=== PATIENT | female | born 1975 | race Asian ===

== ENCOUNTER 2018-06-09 00:55 | Emergency (ER) | payer OTHER ==
[2018-06-09 02:57] LABS: ADD MAN DIFF? NO
[2018-06-09 03:00] LABS: WHITE BLOOD COUNT 9.5 10^3/ul (4.8-10.8)
[2018-06-09 03:00] LABS: BASOPHILS % 0.3 % (0.0-2.0); EOSINOPHILS % 0.2 % (0.0-7.0); HEMOGLOBIN 13.1 g/dl (12.0-16.0); LYMPHOCYTES # 1.9 10^3/ul (0.8-2.9); LYMPHOCYTES % 19.7 % (15.0-51.0); MEAN CORPUSCULAR HEMOGLOBIN 27.8 pg (29.0-33.0); MEAN CORPUSCULAR HGB CONC 31.2 g/dl (32.0-37.0); MEAN PLATELET VOLUME 9.4 fl (7.4-10.4); MONOCYTE # 0.5 10^3/ul (0.3-0.9); MONOCYTES % 5.1 % (0.0-11.0); NEUTROPHILS % 74.3 % (39.0-77.0); PLATELET COUNT 403 10^3/UL (140-415); RED BLOOD COUNT 4.72 10^6/ul (4.20-5.40); RED CELL DISTRIBUTION WIDTH 12.5 % (11.5-14.5)
[2018-06-09] MEDS: morphine 4 MG/ML VIAL IV (03:06)
[2018-06-09] MEDS: ONDANSETRON 4 MG INJ IV (03:06)
[2018-06-09] MEDS: SOD CHLORIDE 0.9% 1,000 ML IV (03:07)
[2018-06-09 03:23] LABS: ADD UMIC NO; UR ASCORBIC ACID NEGATIVE (NEGATIVE); UR BILIRUBIN (Dip) NEGATIVE (NEGATIVE); UR BLOOD (Dip) NEGATIVE (NEGATIVE); UR CLARITY SLIGHTLY CLOUDY (CLEAR); UR COLOR YELLOW (YELLOW); UR GLUCOSE (Dip) NEGATIVE (NEGATIVE); UR KETONES (Dip) NEGATIVE (NEGATIVE); UR LEUKOCYTE ESTERASE (Dip) NEGATIVE Leu/ul (NEGATIVE); UR MUCUS FEW /HPF (NONE SEEN); UR NITRITE (Dip) NEGATIVE (NEGATIVE); UR RBC 4 /HPF (0-5); UR SPECIFIC GRAVITY (Dip) 1.028 (1.003-1.030); UR TOTAL PROTEIN (Dip) NEGATIVE (NEGATIVE); UR UROBILINOGEN (Dip) 1+ mg/dL (NEGATIVE); UR WBC 2 /HPF (0-5)
[2018-06-09 03:31] LABS: ALANINE AMINOTRANSFERASE 22 IU/L (13-69); ALBUMIN 4.8 g/dl (3.3-4.9); ALKALINE PHOSPHATASE 86 IU/L (42-121); ANION GAP 13 (8-16); ASPARTATE AMINO TRANSFERASE 27 IU/L (15-46); BILIRUBIN,INDIRECT 0.3 mg/dl (0-1.1); BILIRUBIN,TOTAL 0.3 mg/dl (0.2-1.3); BLOOD UREA NITROGEN 12 mg/dl (7-20); CARBON DIOXIDE 29 mmol/L (21-31); CHLORIDE 104 mmol/L (97-110); CREATININE 0.68 mg/dl (0.44-1.00); GLUCOSE 130 mg/dl (70-220); LIPASE 70 U/L (23-300); POTASSIUM 4.1 mmol/L (3.5-5.1); SODIUM 142 mmol/L (135-144)
== END 2018-06-09 04:38 | disposition home or self-care (01) ==
LOC: E/R 00:55
DX: R10.13 Epigastric pain (principal); R11.2 Nausea with vomiting, unspecified
CPT/HCPCS: 36415; 76705; 80053; 81001; 81003; 81025; 83690; 85025; 96374; 96375; 99285-25

== ENCOUNTER 2018-12-15 22:25 | Inpatient (IN) | payer OTHER, MEDICAID ==
[2018-12-15 23:26] LABS: ADD MAN DIFF? NO
[2018-12-15 23:30] LABS: BASOPHILS % 0.2 % (0.0-2.0); HEMATOCRIT 29.2 % (37.0-47.0); HEMOGLOBIN 8.7 g/dl (12.0-16.0); LYMPHOCYTES # 0.9 10^3/ul (0.8-2.9); LYMPHOCYTES % 6.8 % (15.0-51.0); MEAN CORPUSCULAR HEMOGLOBIN 27.6 pg (29.0-33.0); MEAN CORPUSCULAR HGB CONC 29.8 g/dl (32.0-37.0); MEAN CORPUSCULAR VOLUME 92.7 fl (82.0-101.0); MEAN PLATELET VOLUME 9.5 fl (7.4-10.4); MONOCYTE # 0.8 10^3/ul (0.3-0.9); MONOCYTES % 6.1 % (0.0-11.0); NEUTROPHIL # 10.7 10^3/ul (1.6-7.5); NEUTROPHILS % 85.9 % (39.0-77.0); PLATELET COUNT 442 10^3/UL (140-415); RED BLOOD COUNT 3.15 10^6/ul (4.20-5.40); RED CELL DISTRIBUTION WIDTH 15.7 % (11.5-14.5)
[2018-12-15 23:30] LABS: WHITE BLOOD COUNT 12.5 10^3/ul (4.8-10.8)
[2018-12-15] MEDS: ONDANSETRON 4 MG INJ IV (23:31)
[2018-12-15] MEDS: SOD CHLORIDE 0.9% 500 ML IV (23:31)
[2018-12-15] MEDS: morphine 4 MG/ML VIAL IV (23:33)
[2018-12-15 23:48] LABS: ALANINE AMINOTRANSFERASE 19 IU/L (13-69); ALBUMIN 3.3 g/dl (3.3-4.9); ALBUMIN/GLOBULIN RATIO 0.94; ALKALINE PHOSPHATASE 67 IU/L (42-121); ASPARTATE AMINO TRANSFERASE 49 IU/L (15-46); BILIRUBIN,INDIRECT 0.4 mg/dl (0-1.1); BILIRUBIN,TOTAL 0.4 mg/dl (0.2-1.3); BLOOD UREA NITROGEN 15 mg/dl (7-20); CALCIUM 9.1 mg/dl (8.4-10.2); CHLORIDE 77 mmol/L (97-110); CREATININE 0.75 mg/dl (0.44-1.00); Estimated GFR > 60 mL/min (>60); GLUCOSE 117 mg/dl (70-220); LIPASE 231 U/L (23-300); SODIUM 135 mmol/L (135-144); TOTAL PROTEIN 6.8 g/dl (6.1-8.1)
[2018-12-15 23:56] LABS: ANION GAP 18 (5-13)
[2018-12-15 23:57] LABS: POTASSIUM 2.6 mmol/L (3.5-5.1)
[2018-12-15 23:58] LABS: CARBON DIOXIDE 40 mmol/L (21-31); TROPONIN-I 0.017 ng/ml (0.000-0.120)
[2018-12-16] MEDS: POTASSIUM CHLORIDE 100 ML IVPB ×4 (00:34→06:19)
[2018-12-16] MEDS ORDERED: ALBUTEROL/IPRATROPIUM (NEB) 3 ML AMP HHN (03:30)
[2018-12-16] MEDS ORDERED: PENDING SANTYL ORDER FOR WOUND CARE XX (03:30)
[2018-12-16] MEDS ORDERED: ONDANSETRON 4 MG INJ IV (03:30)
[2018-12-16] MEDS ORDERED: NACL 0.9% 3 ML SYG IV (03:30)
[2018-12-16] MEDS: DEXTROSE 5%-0.45% NACL 1,000 ML IV ×3 (03:53→21:08)
[2018-12-16 07:02] LABS: ADD MAN DIFF? NO
[2018-12-16 07:10] LABS: WHITE BLOOD COUNT 11.5 10^3/ul (4.8-10.8)
[2018-12-16 07:10] LABS: BASOPHILS % 0.2 % (0.0-2.0); HEMATOCRIT 31.1 % (37.0-47.0); HEMOGLOBIN 9.1 g/dl (12.0-16.0); LYMPHOCYTES # 1.4 10^3/ul (0.8-2.9); LYMPHOCYTES % 11.8 % (15.0-51.0); MEAN CORPUSCULAR HEMOGLOBIN 27.3 pg (29.0-33.0); MEAN CORPUSCULAR HGB CONC 29.3 g/dl (32.0-37.0); MEAN CORPUSCULAR VOLUME 93.4 fl (82.0-101.0); MEAN PLATELET VOLUME 10.3 fl (7.4-10.4); MONOCYTES % 8.8 % (0.0-11.0); NEUTROPHILS % 78.4 % (39.0-77.0); PLATELET COUNT 399 10^3/UL (140-415); RED BLOOD COUNT 3.33 10^6/ul (4.20-5.40); RED CELL DISTRIBUTION WIDTH 15.9 % (11.5-14.5)
[2018-12-16 07:24] LABS: IRON 38 ug/dl (35-150)
[2018-12-16 07:27] LABS: ALANINE AMINOTRANSFERASE 13 IU/L (13-69); ALBUMIN 3.2 g/dl (3.3-4.9); ALBUMIN/GLOBULIN RATIO 0.91; ALKALINE PHOSPHATASE 69 IU/L (42-121); ANION GAP 14 (5-13); ASPARTATE AMINO TRANSFERASE 55 IU/L (15-46); BILIRUBIN,INDIRECT 0.3 mg/dl (0-1.1); BILIRUBIN,TOTAL 0.3 mg/dl (0.2-1.3); BLOOD UREA NITROGEN 16 mg/dl (7-20); CALCIUM 8.8 mg/dl (8.4-10.2); CARBON DIOXIDE 39 mmol/L (21-31); CHLORIDE 83 mmol/L (97-110); CHOL/HDL RATIO 6.9 RATIO; CHOLESTEROL 159 mg/dl (100-200); CREATININE 0.66 mg/dl (0.44-1.00); Estimated GFR > 60 mL/min (>60); GLUCOSE 128 mg/dl (70-220); HDL CHOLESTEROL 23 mg/dl (34-88); LDL CHOLESTEROL,CALCULATED 95 mg/dl; MAGNESIUM 2.4 mg/dl (1.7-2.5); POTASSIUM 4.1 mmol/L (3.5-5.1); SODIUM 136 mmol/L (135-144); TOTAL PROTEIN 6.7 g/dl (6.1-8.1); TRIGLYCERIDES 207 mg/dl (0-149)
[2018-12-16 07:33] LABS: % IRON SATURATION 22 % SAT (22-52); TOTAL IRON BINDING CAPACITY 176 ug/dl (241-421)
[2018-12-16 07:54] LABS: HEMOGLOBIN A1C 5.6 % (0-5.9)
[2018-12-16] MEDS ORDERED: METOCLOPRAMIDE 10 MG INJ IV (08:00)
[2018-12-16 08:10] LABS: PHOSPHORUS 3.7 mg/dl (2.5-4.9)
[2018-12-16] MEDS ORDERED: ONDANSETRON 4 MG INJ (08:16)
[2018-12-16] MEDS: FAMOTIDINE 20 MG INJ IV ×2 (08:23→19:48)
[2018-12-16] MEDS: ONDANSETRON 4 MG INJ IV ×3 (09:30→20:26)
[2018-12-16] MEDS: SOD CHLORIDE 0.9% 100 ML (15:00)
[2018-12-16] MEDS: IOHEXOL 300MG/ML 150 ML BTL (15:00)
[2018-12-16] MEDS: IOHEXOL 14.3 MG(I)/ML (ADULT) BTL PO (15:34)
[2018-12-16] MEDS: morphine 2 MG INJ IV (20:26)
[2018-12-17] MEDS: morphine 2 MG INJ IV ×5 (02:49→22:23)
[2018-12-17] MEDS: ONDANSETRON 4 MG INJ IV ×4 (02:49→21:25)
[2018-12-17 06:39] LABS: ADD MAN DIFF? NO
[2018-12-17 06:44] LABS: BASOPHIL # 0.1 10^3/ul (0.0-0.1); BASOPHILS % 0.4 % (0.0-2.0); EOSINOPHILS # 0.1 10^3/ul (0.0-0.5); EOSINOPHILS % 0.7 % (0.0-7.0); HEMATOCRIT 33.2 % (37.0-47.0); HEMOGLOBIN 9.7 g/dl (12.0-16.0); LYMPHOCYTES # 1.9 10^3/ul (0.8-2.9); LYMPHOCYTES % 14.2 % (15.0-51.0); MEAN CORPUSCULAR HEMOGLOBIN 27.1 pg (29.0-33.0); MEAN CORPUSCULAR HGB CONC 29.2 g/dl (32.0-37.0); MEAN CORPUSCULAR VOLUME 92.7 fl (82.0-101.0); MEAN PLATELET VOLUME 10.2 fl (7.4-10.4); MONOCYTE # 0.7 10^3/ul (0.3-0.9); NEUTROPHIL # 10.7 10^3/ul (1.6-7.5); NEUTROPHILS % 78.8 % (39.0-77.0); PLATELET COUNT 412 10^3/UL (140-415); RED BLOOD COUNT 3.58 10^6/ul (4.20-5.40); RED CELL DISTRIBUTION WIDTH 16.1 % (11.5-14.5)
[2018-12-17 06:44] LABS: WHITE BLOOD COUNT 13.5 10^3/ul (4.8-10.8)
[2018-12-17 07:13] LABS: BLOOD UREA NITROGEN 12 mg/dl (7-20); CALCIUM 8.8 mg/dl (8.4-10.2); CHLORIDE 86 mmol/L (97-110); CREATININE 0.82 mg/dl (0.44-1.00); Estimated GFR > 60 mL/min (>60); GLUCOSE 124 mg/dl (70-220); MAGNESIUM 2.3 mg/dl (1.7-2.5); PHOSPHORUS 2.7 mg/dl (2.5-4.9); POTASSIUM 3.5 mmol/L (3.5-5.1); SODIUM 136 mmol/L (135-144)
[2018-12-17 07:23] LABS: ANION GAP 9 (5-13); CARBON DIOXIDE 41 mmol/L (21-31)
[2018-12-17] MEDS: FAMOTIDINE 20 MG INJ IV ×2 (08:29→21:25)
[2018-12-17] MEDS: DEXTROSE 5%-0.45% NACL 1,000 ML IV ×2 (08:30→11:08)
[2018-12-17 10:41] LABS: AADO2 Arterial 30.1 mmHg (7.0-24.0); Allen Test ACCEPTAB; Arterial Base Excess 19.5 mmol/L (-3.0-3); Arterial COHb 0.3 % (0.0-3.0); Arterial Fraction of Oxyhgb 89.5 % (93.0-99.0); Arterial HCO3 44.4 mmol/L (22.0-26.0); Arterial MetHb 0.3 % (0.0-1.5); Arterial pCO2 53.9 mmhg (35-45); MODE ROOM AIR; Site Left Radial
[2018-12-17] MEDS: ASCORBIC ACID 500 MG TAB PO (10:49)
[2018-12-17] MEDS: MULTIVITAMINS THERAPEUTIC TAB PO (10:50)
[2018-12-17] MEDS: ENOXAPARIN 60 MG/0.6 ML SYG SC ×2 (10:58→21:27)
[2018-12-17 11:00] LABS: PREALBUMIN 5.2 mg/dl (17.6-36.0)
[2018-12-17] MEDS: COLLAGENASE 5 GM (UD JAR) TOP (11:10)
[2018-12-18] MEDS: SUMATRIPTAN 6 MG/0.5 ML INJ SC (00:17)
[2018-12-18] MEDS: HYDROmorphONE 1 MG/ML SYG IV ×6 (00:44→23:43)
[2018-12-18] MEDS: DEXTROSE 5%-0.45% NACL 1,000 ML IV ×2 (00:50→05:09)
[2018-12-18] MEDS: morphine 2 MG INJ IV (02:59)
[2018-12-18] MEDS: ONDANSETRON 4 MG INJ IV ×4 (03:51→22:02)
[2018-12-18 07:51] LABS: ADD MAN DIFF? NO
[2018-12-18 08:03] LABS: WHITE BLOOD COUNT 12.4 10^3/ul (4.8-10.8)
[2018-12-18 08:03] LABS: BASOPHIL # 0.1 10^3/ul (0.0-0.1); BASOPHILS % 0.4 % (0.0-2.0); EOSINOPHILS # 0.3 10^3/ul (0.0-0.5); EOSINOPHILS % 2.5 % (0.0-7.0); HEMATOCRIT 30.7 % (37.0-47.0); HEMOGLOBIN 9.1 g/dl (12.0-16.0); LYMPHOCYTES # 1.1 10^3/ul (0.8-2.9); LYMPHOCYTES % 8.5 % (15.0-51.0); MEAN CORPUSCULAR HEMOGLOBIN 27.5 pg (29.0-33.0); MEAN CORPUSCULAR HGB CONC 29.6 g/dl (32.0-37.0); MEAN CORPUSCULAR VOLUME 92.7 fl (82.0-101.0); MEAN PLATELET VOLUME 9.7 fl (7.4-10.4); MONOCYTE # 0.8 10^3/ul (0.3-0.9); MONOCYTES % 6.6 % (0.0-11.0); NEUTROPHIL # 10.1 10^3/ul (1.6-7.5); NEUTROPHILS % 81.2 % (39.0-77.0); PLATELET COUNT 421 10^3/UL (140-415); RED BLOOD COUNT 3.31 10^6/ul (4.20-5.40); RED CELL DISTRIBUTION WIDTH 15.9 % (11.5-14.5)
[2018-12-18 08:08] LABS: INR 1.11; PROTIME 14.4 Sec (11.9-14.9); PT RATIO 1.1
[2018-12-18 08:11] LABS: ALBUMIN 2.6 g/dl (3.3-4.9)
[2018-12-18 08:16] LABS: BLOOD UREA NITROGEN 11 mg/dl (7-20); CALCIUM 8.4 mg/dl (8.4-10.2); CHLORIDE 86 mmol/L (97-110); Estimated GFR > 60 mL/min (>60); GLUCOSE 128 mg/dl (70-220); POTASSIUM 3.3 mmol/L (3.5-5.1); SODIUM 135 mmol/L (135-144)
[2018-12-18 08:33] LABS: ANION GAP 7 (5-13); CARBON DIOXIDE 42 mmol/L (21-31)
[2018-12-18] MEDS: ASCORBIC ACID 500 MG TAB PO (08:36)
[2018-12-18] MEDS: COLLAGENASE 5 GM (UD JAR) TOP (08:36)
[2018-12-18] MEDS: FAMOTIDINE 20 MG INJ IV ×2 (08:36→22:02)
[2018-12-18] MEDS: MULTIVITAMINS THERAPEUTIC TAB PO (08:36)
[2018-12-18] MEDS: ENOXAPARIN 60 MG/0.6 ML SYG SC ×2 (08:38→22:09)
[2018-12-18 08:44] LABS: CARCINOEMBRYONIC ANTIGEN 7.9 ng/ml (0.0-5.0)
[2018-12-18] MEDS: HYDROCORTISONE 1% 28 GM CR TOP ×2 (11:27→21:00)
[2018-12-18] MEDS: D5W-0.45 NACL + KCL 20 MEQ 1,000 ML IV ×2 (11:27→23:51)
[2018-12-18 12:37] LABS: ADD UMIC YES; UR ASCORBIC ACID NEGATIVE (NEGATIVE); UR BACTERIA FEW /HPF (NONE SEEN); UR BILIRUBIN (Dip) NEGATIVE (NEGATIVE); UR BLOOD (Dip) NEGATIVE (NEGATIVE); UR CLARITY SLIGHTLY CLOUDY (CLEAR); UR COLOR AMBER (YELLOW); UR GLUCOSE (Dip) NEGATIVE (NEGATIVE); UR KETONES (Dip) NEGATIVE (NEGATIVE); UR LEUKOCYTE ESTERASE (Dip) TRACE Leu/ul (NEGATIVE); UR NITRITE (Dip) NEGATIVE (NEGATIVE); UR RBC 3 /HPF (0-5); UR SPECIFIC GRAVITY (Dip) 1.044 (1.003-1.030); UR TOTAL PROTEIN (Dip) 1+ mg/dl (NEGATIVE); UR UROBILINOGEN (Dip) 2+ mg/dL (NEGATIVE); UR WBC 10 /HPF (0-5)
[2018-12-19] MEDS: morphine 4 MG/ML VIAL IV (02:38)
[2018-12-19] MEDS: ONDANSETRON 4 MG INJ IV ×4 (03:31→20:56)
[2018-12-19] MEDS: HYDROmorphONE 1 MG/ML SYG IV ×5 (05:57→22:19)
[2018-12-19] MEDS: FAMOTIDINE 20 MG INJ IV ×2 (08:26→20:57)
[2018-12-19] MEDS: morphine 2 MG INJ IV (08:29)
[2018-12-19] MEDS: ENOXAPARIN 60 MG/0.6 ML SYG SC ×2 (08:29→21:17)
[2018-12-19] MEDS: HYDROCORTISONE 1% 28 GM CR TOP ×2 (08:48→20:58)
[2018-12-19] MEDS: MULTIVITAMINS THERAPEUTIC TAB PO (09:00)
[2018-12-19] MEDS: ASCORBIC ACID 500 MG TAB PO (09:00)
[2018-12-19] MEDS: D5W-0.45 NACL + KCL 20 MEQ 1,000 ML IV (12:16)
[2018-12-19] MEDS: COLLAGENASE 5 GM (UD JAR) TOP (18:32)
[2018-12-20] MEDS: D5W-0.45 NACL + KCL 20 MEQ 1,000 ML IV ×3 (01:49→15:36)
[2018-12-20] MEDS: HYDROmorphONE 1 MG/ML SYG IV ×6 (02:03→21:36)
[2018-12-20] MEDS: ONDANSETRON 4 MG INJ IV ×4 (04:12→20:52)
[2018-12-20 06:41] LABS: ADD MAN DIFF? NO
[2018-12-20 06:53] LABS: BASOPHIL # 0.1 10^3/ul (0.0-0.1); BASOPHILS % 0.5 % (0.0-2.0); EOSINOPHILS # 0.3 10^3/ul (0.0-0.5); EOSINOPHILS % 2.1 % (0.0-7.0); HEMATOCRIT 31.8 % (37.0-47.0); HEMOGLOBIN 9.6 g/dl (12.0-16.0); LYMPHOCYTES # 1.7 10^3/ul (0.8-2.9); MEAN CORPUSCULAR HEMOGLOBIN 27.6 pg (29.0-33.0); MEAN CORPUSCULAR HGB CONC 30.2 g/dl (32.0-37.0); MEAN CORPUSCULAR VOLUME 91.4 fl (82.0-101.0); MEAN PLATELET VOLUME 9.9 fl (7.4-10.4); MONOCYTE # 1.1 10^3/ul (0.3-0.9); MONOCYTES % 8.7 % (0.0-11.0); NEUTROPHIL # 9.6 10^3/ul (1.6-7.5); PLATELET COUNT 466 10^3/UL (140-415); RED BLOOD COUNT 3.48 10^6/ul (4.20-5.40); RED CELL DISTRIBUTION WIDTH 15.7 % (11.5-14.5)
[2018-12-20 06:53] LABS: WHITE BLOOD COUNT 12.8 10^3/ul (4.8-10.8)
[2018-12-20 07:21] LABS: ANION GAP 8 (5-13); BLOOD UREA NITROGEN 11 mg/dl (7-20); CALCIUM 8.6 mg/dl (8.4-10.2); CARBON DIOXIDE 37 mmol/L (21-31); CHLORIDE 88 mmol/L (97-110); CREATININE 0.83 mg/dl (0.44-1.00); Estimated GFR > 60 mL/min (>60); GLUCOSE 107 mg/dl (70-220); POTASSIUM 4.1 mmol/L (3.5-5.1); SODIUM 133 mmol/L (135-144)
[2018-12-20] MEDS: COLLAGENASE 5 GM (UD JAR) TOP (09:00)
[2018-12-20] MEDS: ASCORBIC ACID 500 MG TAB PO (09:00)
[2018-12-20] MEDS: MULTIVITAMINS THERAPEUTIC TAB PO (09:00)
[2018-12-20] MEDS: HYDROCORTISONE 1% 28 GM CR TOP ×2 (09:00→20:53)
[2018-12-20] MEDS: FAMOTIDINE 20 MG INJ IV ×2 (09:07→20:52)
[2018-12-20] MEDS: ENOXAPARIN 60 MG/0.6 ML SYG SC ×2 (09:16→21:41)
[2018-12-20] MEDS: LEVOFLOXACIN 500MG/D5W (PMX) 100 ML IVPB (10:52)
[2018-12-20 12:12] LABS: Arterial Base Excess 10.9 mmol/L (-3.0-3); Arterial COHb 0.2 % (0.0-3.0); Arterial Fraction of Oxyhgb 98.6 % (93.0-99.0); Arterial HCO3 35.7 mmol/L (22.0-26.0); Arterial MetHb 0.2 % (0.0-1.5); Arterial pCO2 48.9 mmhg (35-45); MODE NASAL CANNULA; Site Right Brachial
[2018-12-21] MEDS: HYDROmorphONE 1 MG/ML SYG IV ×8 (01:02→23:39)
[2018-12-21] MEDS: ONDANSETRON 4 MG INJ IV ×4 (03:52→22:05)
[2018-12-21] MEDS: D5W-0.45 NACL + KCL 20 MEQ 1,000 ML IV (04:24)
[2018-12-21 06:40] LABS: ADD MAN DIFF? NO
[2018-12-21 06:50] LABS: WHITE BLOOD COUNT 10.9 10^3/ul (4.8-10.8)
[2018-12-21 06:50] LABS: BASOPHILS % 0.4 % (0.0-2.0); EOSINOPHILS # 0.1 10^3/ul (0.0-0.5); EOSINOPHILS % 0.6 % (0.0-7.0); LYMPHOCYTES # 0.9 10^3/ul (0.8-2.9); LYMPHOCYTES % 8.6 % (15.0-51.0); MEAN CORPUSCULAR HEMOGLOBIN 28.2 pg (29.0-33.0); MEAN CORPUSCULAR HGB CONC 30.8 g/dl (32.0-37.0); MEAN CORPUSCULAR VOLUME 91.5 fl (82.0-101.0); MEAN PLATELET VOLUME 9.8 fl (7.4-10.4); MONOCYTE # 0.9 10^3/ul (0.3-0.9); MONOCYTES % 8.7 % (0.0-11.0); NEUTROPHIL # 8.8 10^3/ul (1.6-7.5); NEUTROPHILS % 80.8 % (39.0-77.0); PLATELET COUNT 361 10^3/UL (140-415); RED BLOOD COUNT 2.84 10^6/ul (4.20-5.40); RED CELL DISTRIBUTION WIDTH 15.3 % (11.5-14.5)
[2018-12-21 07:29] LABS: ANION GAP 4 (5-13); Estimated GFR > 60 mL/min (>60)
[2018-12-21 07:34] LABS: BLOOD UREA NITROGEN 10 mg/dl (7-20); CALCIUM 7.9 mg/dl (8.4-10.2); CARBON DIOXIDE 33 mmol/L (21-31); CHLORIDE 94 mmol/L (97-110); CREATININE 0.76 mg/dl (0.44-1.00); GLUCOSE 197 mg/dl (70-220); POTASSIUM 4.5 mmol/L (3.5-5.1); SODIUM 131 mmol/L (135-144)
[2018-12-21] MEDS: FAMOTIDINE 20 MG INJ IV ×2 (08:34→20:26)
[2018-12-21] MEDS: HYDROCORTISONE 1% 28 GM CR TOP ×2 (08:34→21:59)
[2018-12-21] MEDS: COLLAGENASE 5 GM (UD JAR) TOP (08:34)
[2018-12-21] MEDS: ASCORBIC ACID 500 MG TAB PO (08:35)
[2018-12-21] MEDS: MULTIVITAMINS THERAPEUTIC TAB PO (08:35)
[2018-12-21] MEDS ORDERED: OXYCODONE/ACETAMINOPHEN (5/325) TAB PO (10:00)
[2018-12-21] MEDS: LEVOFLOXACIN 500MG/D5W (PMX) 100 ML IVPB (10:00)
[2018-12-21] MEDS: LIDOCAINE 1% (MPF) 5 ML VIAL (17:09)
[2018-12-21] MEDS: ENOXAPARIN 60 MG/0.6 ML SYG SC (21:00)
[2018-12-22] MEDS: D5W-0.45 NACL + KCL 20 MEQ 1,000 ML IV (02:44)
[2018-12-22] MEDS: ONDANSETRON 4 MG INJ IV ×4 (03:12→21:36)
[2018-12-22] MEDS: HYDROmorphONE 1 MG/ML SYG IV ×7 (03:18→22:56)
[2018-12-22 06:54] LABS: ADD MAN DIFF? NO
[2018-12-22 06:56] LABS: BASOPHILS % 0.3 % (0.0-2.0); EOSINOPHILS # 0.1 10^3/ul (0.0-0.5); EOSINOPHILS % 0.5 % (0.0-7.0); HEMATOCRIT 32.1 % (37.0-47.0); HEMOGLOBIN 9.7 g/dl (12.0-16.0); LYMPHOCYTES # 1.2 10^3/ul (0.8-2.9); LYMPHOCYTES % 10.9 % (15.0-51.0); MEAN CORPUSCULAR HEMOGLOBIN 27.6 pg (29.0-33.0); MEAN CORPUSCULAR HGB CONC 30.2 g/dl (32.0-37.0); MEAN CORPUSCULAR VOLUME 91.5 fl (82.0-101.0); MEAN PLATELET VOLUME 9.4 fl (7.4-10.4); MONOCYTE # 0.8 10^3/ul (0.3-0.9); MONOCYTES % 7.7 % (0.0-11.0); NEUTROPHIL # 8.6 10^3/ul (1.6-7.5); PLATELET COUNT 503 10^3/UL (140-415); RED BLOOD COUNT 3.51 10^6/ul (4.20-5.40); RED CELL DISTRIBUTION WIDTH 15.6 % (11.5-14.5)
[2018-12-22 06:56] LABS: WHITE BLOOD COUNT 10.8 10^3/ul (4.8-10.8)
[2018-12-22 07:25] LABS: ANION GAP 2 (5-13); BLOOD UREA NITROGEN 9 mg/dl (7-20); CALCIUM 8.1 mg/dl (8.4-10.2); CARBON DIOXIDE 36 mmol/L (21-31); CHLORIDE 94 mmol/L (97-110); Estimated GFR > 60 mL/min (>60); GLUCOSE 100 mg/dl (70-220); POTASSIUM 4.8 mmol/L (3.5-5.1); SODIUM 132 mmol/L (135-144)
[2018-12-22] MEDS: FAMOTIDINE 20 MG INJ IV ×2 (08:31→20:13)
[2018-12-22] MEDS: COLLAGENASE 5 GM (UD JAR) TOP (08:32)
[2018-12-22] MEDS: ASCORBIC ACID 500 MG TAB PO (08:38)
[2018-12-22] MEDS: HYDROCORTISONE 1% 28 GM CR TOP ×2 (08:38→21:30)
[2018-12-22] MEDS: MULTIVITAMINS THERAPEUTIC TAB PO (08:38)
[2018-12-22] MEDS: ENOXAPARIN 60 MG/0.6 ML SYG SC ×2 (08:42→20:19)
[2018-12-22] MEDS: LEVOFLOXACIN 500MG/D5W (PMX) 100 ML IVPB (11:36)
[2018-12-22 12:19] LABS: ALANINE AMINOTRANSFERASE 19 IU/L (13-69); ALBUMIN 2.1 g/dl (3.3-4.9); ALKALINE PHOSPHATASE 66 IU/L (42-121); ANION GAP 4 (5-13); ASPARTATE AMINO TRANSFERASE 61 IU/L (15-46); BILIRUBIN,INDIRECT 0.3 mg/dl (0-1.1); BILIRUBIN,TOTAL 0.3 mg/dl (0.2-1.3); BLOOD UREA NITROGEN 10 mg/dl (7-20); CARBON DIOXIDE 33 mmol/L (21-31); CHLORIDE 93 mmol/L (97-110); CREATININE 0.74 mg/dl (0.44-1.00); Estimated GFR > 60 mL/min (>60); GLUCOSE 103 mg/dl (70-220); MAGNESIUM 1.7 mg/dl (1.7-2.5); PHOSPHORUS 3.3 mg/dl (2.5-4.9); POTASSIUM 5.3 mmol/L (3.5-5.1); SODIUM 130 mmol/L (135-144); TOTAL PROTEIN 4.7 g/dl (6.1-8.1); TRIGLYCERIDES 185 mg/dl (0-149)
[2018-12-22 12:45] LABS: PREALBUMIN < 3.0 mg/dl (17.6-36.0)
[2018-12-22] MEDS: ACCU-CHEK XX ×3 (13:45→21:00)
[2018-12-22] MEDS: TPN 1,000 ML IV (17:44)
[2018-12-23] MEDS: ACCU-CHEK XX ×6 (01:00→20:49)
[2018-12-23] MEDS: HYDROmorphONE 1 MG/ML SYG IV ×8 (01:57→23:32)
[2018-12-23] MEDS: ONDANSETRON 4 MG INJ IV ×4 (05:11→20:34)
[2018-12-23 08:23] LABS: ADD MAN DIFF? NO
[2018-12-23 08:48] LABS: ANION GAP 7 (5-13); BLOOD UREA NITROGEN 14 mg/dl (7-20); CALCIUM 6.9 mg/dl (8.4-10.2); CARBON DIOXIDE 25 mmol/L (21-31); CHLORIDE 100 mmol/L (97-110); CREATININE 0.59 mg/dl (0.44-1.00); Estimated GFR > 60 mL/min (>60); GLUCOSE 233 mg/dl (70-220); MAGNESIUM 1.7 mg/dl (1.7-2.5); POTASSIUM 3.7 mmol/L (3.5-5.1); SODIUM 132 mmol/L (135-144)
[2018-12-23] MEDS: TPN 1,000 ML IV (08:49)
[2018-12-23] MEDS: FAT EMULSION 20% 250 ML IV (08:51)
[2018-12-23] MEDS: HYDROCORTISONE 1% 28 GM CR TOP ×2 (08:59→20:46)
[2018-12-23] MEDS: COLLAGENASE 5 GM (UD JAR) TOP (09:07)
[2018-12-23] MEDS: FAMOTIDINE 20 MG INJ IV ×2 (09:07→20:32)
[2018-12-23] MEDS: ENOXAPARIN 60 MG/0.6 ML SYG SC ×2 (09:16→20:54)
[2018-12-23 09:51] LABS: ABNORMAL IP MESSAGE 1; BASOPHIL # 0.1 10^3/ul (0.0-0.1); BASOPHILS % 0.3 % (0.0-2.0); EOSINOPHILS % 0.1 % (0.0-7.0); LYMPHOCYTES # 1.6 10^3/ul (0.8-2.9); LYMPHOCYTES % 10.7 % (15.0-51.0); MEAN CORPUSCULAR HEMOGLOBIN 28.7 pg (29.0-33.0); MEAN CORPUSCULAR HGB CONC 31.3 g/dl (32.0-37.0); MEAN CORPUSCULAR VOLUME 91.7 fl (82.0-101.0); MEAN PLATELET VOLUME 9.3 fl (7.4-10.4); MONOCYTE # 1.8 10^3/ul (0.3-0.9); MONOCYTES % 12.1 % (0.0-11.0); NEUTROPHIL # 11.3 10^3/ul (1.6-7.5); NEUTROPHILS % 75.9 % (39.0-77.0); PLATELET COUNT 463 10^3/UL (140-415); RED BLOOD COUNT 3.49 10^6/ul (4.20-5.40); RED CELL DISTRIBUTION WIDTH 15.9 % (11.5-14.5)
[2018-12-23 09:51] LABS: WHITE BLOOD COUNT 14.8 10^3/ul (4.8-10.8)
[2018-12-23 10:06] LABS: POSITIVE DIFF @See below
[2018-12-23] MEDS ORDERED: GLUCOSE GEL 15 GRAM TUBE BUCCAL (10:30)
[2018-12-23] MEDS ORDERED: GLUCOSE GEL 15 GRAM TUBE PO ×2 (10:30)
[2018-12-23] MEDS ORDERED: GLUCAGON 1 MG INJ IM (10:30)
[2018-12-23] MEDS ORDERED: DEXTROSE 50% 50 ML SYRINGE IV ×2 (10:30)
[2018-12-23] MEDS: LEVOFLOXACIN 500MG/D5W (PMX) 100 ML IVPB (11:32)
[2018-12-23] MEDS: INSULIN ASPART [NOVOLOG] 3 ML PEN SC ×3 (13:42→20:54)
[2018-12-23] MEDS: LEVALBUTEROL (NEB) 1.25 MG/0.5 ML AMP HHN (15:22)
[2018-12-24] MEDS: TPN 1,000 ML IV ×2 (00:45→16:22)
[2018-12-24] MEDS: ACCU-CHEK XX ×5 (00:51→13:00)
[2018-12-24] MEDS: INSULIN ASPART [NOVOLOG] 3 ML PEN SC ×6 (00:51→20:57)
[2018-12-24] MEDS: HYDROmorphONE 1 MG/ML SYG IV ×8 (02:16→23:28)
[2018-12-24] MEDS: ONDANSETRON 4 MG INJ IV ×4 (02:21→20:50)
[2018-12-24 08:40] LABS: WHITE BLOOD COUNT 17.4 10^3/ul (4.8-10.8)
[2018-12-24 08:40] LABS: ABNORMAL IP MESSAGE 1; HEMATOCRIT 29.1 % (37.0-47.0); HEMOGLOBIN 8.8 g/dl (12.0-16.0); MEAN CORPUSCULAR HEMOGLOBIN 27.3 pg (29.0-33.0); MEAN CORPUSCULAR HGB CONC 30.2 g/dl (32.0-37.0); MEAN CORPUSCULAR VOLUME 90.4 fl (82.0-101.0); MEAN PLATELET VOLUME 9.6 fl (7.4-10.4); PLATELET COUNT 384 10^3/UL (140-415); RED BLOOD COUNT 3.22 10^6/ul (4.20-5.40); RED CELL DISTRIBUTION WIDTH 15.9 % (11.5-14.5)
[2018-12-24 08:47] LABS: ADD MAN DIFF? YES; POSITIVE DIFF @See below
[2018-12-24 09:06] LABS: PHOSPHORUS 2.5 mg/dl (2.5-4.9)
[2018-12-24 09:12] LABS: ANION GAP 4 (5-13); BLOOD UREA NITROGEN 22 mg/dl (7-20); CALCIUM 8.3 mg/dl (8.4-10.2); CARBON DIOXIDE 30 mmol/L (21-31); CHLORIDE 98 mmol/L (97-110); CREATININE 0.67 mg/dl (0.44-1.00); Estimated GFR > 60 mL/min (>60); GLUCOSE 151 mg/dl (70-220); POTASSIUM 3.6 mmol/L (3.5-5.1); SODIUM 132 mmol/L (135-144)
[2018-12-24] MEDS: COLLAGENASE 5 GM (UD JAR) TOP (09:24)
[2018-12-24] MEDS: HYDROCORTISONE 1% 28 GM CR TOP ×2 (09:25→21:00)
[2018-12-24] MEDS: FAMOTIDINE 20 MG INJ IV ×2 (09:25→20:50)
[2018-12-24] MEDS: ENOXAPARIN 60 MG/0.6 ML SYG SC ×2 (09:31→21:13)
[2018-12-24 09:39] LABS: MAGNESIUM 1.9 mg/dl (1.7-2.5)
[2018-12-24 10:08] LABS: BAND NEUTROPHILS #M 1.3 10^3/ul (0.0-0.6); BAND NEUTROPHILS % (M) 8 % (0-4); GIANT THROMBO% (M) 1 % (0-0); LYMPHOCYTES #M 1.7 10^3/ul (0.8-2.9); LYMPHOCYTES % (M) 10 % (15-51); MONOCYTE #M 1.2 10^3/ul (0.3-0.9); MONOCYTES % (M) 7 % (0-11); PLATELET ESTIMATE NORMAL; POLYCHROMASIA 2+ (0-0); SEG NEUT #M 13.3 10^3/ul (1.6-7.5); SEGMENTED NEUTROPHILS (M) % 75 % (39-77); SMUDGE%M 15 % (0-0)
[2018-12-24] MEDS: LEVOFLOXACIN 500MG/D5W (PMX) 100 ML IVPB (11:31)
[2018-12-25] MEDS: ACCU-CHEK XX (02:00)
[2018-12-25] MEDS: HYDROmorphONE 1 MG/ML SYG IV ×6 (02:04→21:32)
[2018-12-25] MEDS: ONDANSETRON 4 MG INJ IV ×4 (02:05→21:31)
[2018-12-25] MEDS: INSULIN ASPART [NOVOLOG] 3 ML PEN SC ×3 (06:23→18:24)
[2018-12-25] MEDS: TPN 1,000 ML IV ×2 (07:15→22:54)
[2018-12-25 08:28] LABS: ADD MAN DIFF? NO
[2018-12-25 08:32] LABS: WHITE BLOOD COUNT 14.5 10^3/ul (4.8-10.8)
[2018-12-25 08:32] LABS: ABNORMAL IP MESSAGE 1; BASOPHILS % 0.3 % (0.0-2.0); HEMOGLOBIN 8.9 g/dl (12.0-16.0); LYMPHOCYTES # 1.3 10^3/ul (0.8-2.9); LYMPHOCYTES % 8.7 % (15.0-51.0); MEAN CORPUSCULAR HEMOGLOBIN 27.9 pg (29.0-33.0); MEAN CORPUSCULAR HGB CONC 30.7 g/dl (32.0-37.0); MEAN CORPUSCULAR VOLUME 90.9 fl (82.0-101.0); MONOCYTE # 1.6 10^3/ul (0.3-0.9); MONOCYTES % 11.3 % (0.0-11.0); NEUTROPHIL # 11.5 10^3/ul (1.6-7.5); PLATELET COUNT 405 10^3/UL (140-415); RED BLOOD COUNT 3.19 10^6/ul (4.20-5.40); RED CELL DISTRIBUTION WIDTH 16.1 % (11.5-14.5)
[2018-12-25 08:36] LABS: POSITIVE DIFF @See below
[2018-12-25 08:55] LABS: PHOSPHORUS 2.8 mg/dl (2.5-4.9)
[2018-12-25 08:55] LABS: MAGNESIUM 2.1 mg/dl (1.7-2.5)
[2018-12-25 09:05] LABS: ANION GAP 7 (5-13); BLOOD UREA NITROGEN 30 mg/dl (7-20); CALCIUM 8.7 mg/dl (8.4-10.2); CARBON DIOXIDE 27 mmol/L (21-31); CHLORIDE 99 mmol/L (97-110); CREATININE 0.63 mg/dl (0.44-1.00); Estimated GFR > 60 mL/min (>60); GLUCOSE 156 mg/dl (70-220); POTASSIUM 3.6 mmol/L (3.5-5.1); SODIUM 133 mmol/L (135-144)
[2018-12-25] MEDS: ENOXAPARIN 60 MG/0.6 ML SYG SC ×2 (12:20→21:54)
[2018-12-25] MEDS: FAMOTIDINE 20 MG INJ IV ×2 (12:30→21:31)
[2018-12-25] MEDS: COLLAGENASE 5 GM (UD JAR) TOP (12:31)
[2018-12-25] MEDS: HYDROCORTISONE 1% 28 GM CR TOP ×2 (12:31→21:31)
[2018-12-25] MEDS: LEVOFLOXACIN 500MG/D5W (PMX) 100 ML IVPB (12:31)
[2018-12-25] MEDS: POTASSIUM CHLORIDE 20 MEQ /SW 100 ML IVPB (13:58)
[2018-12-25] MEDS: HYDROmorphONE 2 MG/ML SYG IV (14:13)
[2018-12-25] MEDS: LEVALBUTEROL (NEB) 1.25 MG/0.5 ML AMP HHN (16:50)
[2018-12-26] MEDS: HYDROmorphONE 1 MG/ML SYG IV ×11 (00:06→22:06)
[2018-12-26] MEDS: INSULIN ASPART [NOVOLOG] 3 ML PEN SC ×4 (00:37→17:47)
[2018-12-26] MEDS: ACCU-CHEK XX (02:00)
[2018-12-26] MEDS: ONDANSETRON 4 MG INJ IV ×4 (03:19→20:44)
[2018-12-26 08:52] LABS: WHITE BLOOD COUNT 12.5 10^3/ul (4.8-10.8)
[2018-12-26 08:52] LABS: ABNORMAL IP MESSAGE 1; HEMATOCRIT 23.9 % (37.0-47.0); HEMOGLOBIN 7.5 g/dl (12.0-16.0); MEAN CORPUSCULAR HEMOGLOBIN 28.1 pg (29.0-33.0); MEAN CORPUSCULAR HGB CONC 31.4 g/dl (32.0-37.0); MEAN CORPUSCULAR VOLUME 89.5 fl (82.0-101.0); RED BLOOD COUNT 2.67 10^6/ul (4.20-5.40); RED CELL DISTRIBUTION WIDTH 16.6 % (11.5-14.5)
[2018-12-26 09:06] LABS: PLATELET COUNT 313 10^3/UL (140-415)
[2018-12-26 09:07] LABS: POSITIVE DIFF @See below
[2018-12-26 09:10] LABS: ADD MAN DIFF? YES
[2018-12-26 09:14] LABS: PHOSPHORUS 2.8 mg/dl (2.5-4.9)
[2018-12-26 09:14] LABS: ANION GAP 6 (5-13); BLOOD UREA NITROGEN 30 mg/dl (7-20); CALCIUM 8.2 mg/dl (8.4-10.2); CARBON DIOXIDE 23 mmol/L (21-31); CHLORIDE 107 mmol/L (97-110); CREATININE 0.55 mg/dl (0.44-1.00); Estimated GFR > 60 mL/min (>60); GLUCOSE 159 mg/dl (70-220); MAGNESIUM 2.2 mg/dl (1.7-2.5); POTASSIUM 3.5 mmol/L (3.5-5.1); SODIUM 136 mmol/L (135-144)
[2018-12-26] MEDS: FAMOTIDINE 20 MG INJ IV ×2 (09:33→20:44)
[2018-12-26] MEDS: FAT EMULSION 20% 250 ML IV (09:34)
[2018-12-26] MEDS: ENOXAPARIN 60 MG/0.6 ML SYG SC ×2 (10:01→21:12)
[2018-12-26] MEDS: COLLAGENASE 5 GM (UD JAR) TOP (10:03)
[2018-12-26] MEDS: HYDROCORTISONE 1% 28 GM CR TOP ×2 (10:03→20:44)
[2018-12-26 10:21] LABS: BAND NEUTROPHILS #M 0.6 10^3/ul (0.0-0.6); BAND NEUTROPHILS % (M) 5 % (0-4); LYMPHOCYTES % (M) 8 % (15-51); MONOCYTE #M 1.1 10^3/ul (0.3-0.9); MONOCYTES % (M) 9 % (0-11); PLATELET ESTIMATE NORMAL; POLYCHROMASIA 1+ (0-0); SEG NEUT #M 9.8 10^3/ul (1.6-7.5); SEGMENTED NEUTROPHILS (M) % 78 % (39-77); SMUDGE%M 2 % (0-0)
[2018-12-26] MEDS: LEVOFLOXACIN 500MG/D5W (PMX) 100 ML IVPB (11:38)
[2018-12-26] MEDS: POTASSIUM CHLORIDE 100 ML IVPB (13:11)
[2018-12-26] MEDS: TPN 1,000 ML IV (14:31)
[2018-12-27] MEDS: INSULIN ASPART [NOVOLOG] 3 ML PEN SC ×4 (01:00→18:00)
[2018-12-27] MEDS: HYDROmorphONE 1 MG/ML SYG IV ×10 (01:24→22:37)
[2018-12-27] MEDS: ACCU-CHEK XX (02:00)
[2018-12-27] MEDS: ONDANSETRON 4 MG INJ IV ×4 (04:27→21:41)
[2018-12-27] MEDS: TPN 1,000 ML IV ×2 (06:05→21:42)
[2018-12-27] MEDS: FAMOTIDINE 20 MG INJ IV ×2 (08:12→20:10)
[2018-12-27 08:13] LABS: ADD MAN DIFF? NO
[2018-12-27 08:43] LABS: MAGNESIUM 2.5 mg/dl (1.7-2.5)
[2018-12-27 08:58] LABS: ALANINE AMINOTRANSFERASE 14 IU/L (13-69); ALBUMIN 2.3 g/dl (3.3-4.9); ALBUMIN/GLOBULIN RATIO 0.74; ALKALINE PHOSPHATASE 92 IU/L (42-121); ANION GAP 9 (5-13); ASPARTATE AMINO TRANSFERASE 61 IU/L (15-46); BILIRUBIN,INDIRECT 0.4 mg/dl (0-1.1); BILIRUBIN,TOTAL 0.4 mg/dl (0.2-1.3); BLOOD UREA NITROGEN 34 mg/dl (7-20); CALCIUM 8.9 mg/dl (8.4-10.2); CARBON DIOXIDE 22 mmol/L (21-31); CHLORIDE 105 mmol/L (97-110); CREATININE 0.56 mg/dl (0.44-1.00); Estimated GFR > 60 mL/min (>60); GLUCOSE 143 mg/dl (70-220); POTASSIUM 5.2 mmol/L (3.5-5.1); SODIUM 136 mmol/L (135-144); TOTAL PROTEIN 5.4 g/dl (6.1-8.1)
[2018-12-27] MEDS: HYDROCORTISONE 1% 28 GM CR TOP ×2 (09:00→20:46)
[2018-12-27 09:15] LABS: BASOPHIL # 0.1 10^3/ul (0.0-0.1); BASOPHILS % 0.4 % (0.0-2.0); EOSINOPHILS % 0.1 % (0.0-7.0); HEMATOCRIT 26.9 % (37.0-47.0); HEMOGLOBIN 8.2 g/dl (12.0-16.0); LYMPHOCYTES # 1.2 10^3/ul (0.8-2.9); LYMPHOCYTES % 8.7 % (15.0-51.0); MEAN CORPUSCULAR HEMOGLOBIN 27.9 pg (29.0-33.0); MEAN CORPUSCULAR HGB CONC 30.5 g/dl (32.0-37.0); MEAN CORPUSCULAR VOLUME 91.5 fl (82.0-101.0); MEAN PLATELET VOLUME 9.6 fl (7.4-10.4); MONOCYTE # 1.4 10^3/ul (0.3-0.9); MONOCYTES % 9.9 % (0.0-11.0); NEUTROPHILS % 79.5 % (39.0-77.0); PLATELET COUNT 411 10^3/UL (140-415); RED BLOOD COUNT 2.94 10^6/ul (4.20-5.40); RED CELL DISTRIBUTION WIDTH 16.8 % (11.5-14.5)
[2018-12-27 09:15] LABS: WHITE BLOOD COUNT 13.9 10^3/ul (4.8-10.8)
[2018-12-27 09:25] LABS: PHOSPHORUS 3.5 mg/dl (2.5-4.9)
[2018-12-27] MEDS: COLLAGENASE 5 GM (UD JAR) TOP (10:44)
[2018-12-27] MEDS: ENOXAPARIN 60 MG/0.6 ML SYG SC ×2 (10:57→20:46)
[2018-12-27] MEDS: LEVOFLOXACIN 500MG/D5W (PMX) 100 ML IVPB (13:31)
[2018-12-28] MEDS: HYDROmorphONE 1 MG/ML SYG IV ×10 (00:33→21:27)
[2018-12-28] MEDS: INSULIN ASPART [NOVOLOG] 3 ML PEN SC ×4 (00:41→17:05)
[2018-12-28] MEDS: ACCU-CHEK XX (02:00)
[2018-12-28] MEDS: ONDANSETRON 4 MG INJ IV ×6 (02:32→21:14)
[2018-12-28] MEDS: METOCLOPRAMIDE 10 MG INJ IV ×2 (04:51→22:58)
[2018-12-28] MEDS ORDERED: ONDANSETRON 4 MG INJ IV (05:00)
[2018-12-28 07:34] LABS: ANION GAP 7 (5-13); BLOOD UREA NITROGEN 33 mg/dl (7-20); CALCIUM 9.3 mg/dl (8.4-10.2); CARBON DIOXIDE 21 mmol/L (21-31); CHLORIDE 110 mmol/L (97-110); CREATININE 0.56 mg/dl (0.44-1.00); Estimated GFR > 60 mL/min (>60); GLUCOSE 143 mg/dl (70-220); MAGNESIUM 2.6 mg/dl (1.7-2.5); PHOSPHORUS 3.7 mg/dl (2.5-4.9); POTASSIUM 5.1 mmol/L (3.5-5.1); SODIUM 138 mmol/L (135-144)
[2018-12-28] MEDS: HYDROCORTISONE 1% 28 GM CR TOP ×2 (08:50→21:15)
[2018-12-28] MEDS: FAMOTIDINE 20 MG INJ IV ×2 (08:50→21:14)
[2018-12-28] MEDS: COLLAGENASE 5 GM (UD JAR) TOP (08:50)
[2018-12-28] MEDS: ENOXAPARIN 60 MG/0.6 ML SYG SC ×3 (08:57→21:32)
[2018-12-28] MEDS: LEVOFLOXACIN 500MG/D5W (PMX) 100 ML IVPB (11:13)
[2018-12-28] MEDS: TPN 1,000 ML IV (14:05)
[2018-12-28] MEDS: FENTAnyl PATCH 50 MCG/HR TRANSDERM (19:11)
[2018-12-28] MEDS: ALTEPLASE (CATHFLO) 2 MG INJ CATHETER ×2 (21:15→23:41)
[2018-12-28] MEDS: LEVALBUTEROL (NEB) 1.25 MG/0.5 ML AMP HHN (22:10)
[2018-12-29] MEDS: HYDROmorphONE 1 MG/ML SYG IV ×6 (01:19→14:12)
[2018-12-29] MEDS: ONDANSETRON 4 MG INJ IV ×4 (01:19→12:53)
[2018-12-29] MEDS: ACCU-CHEK XX (02:00)
[2018-12-29] MEDS: TPN 1,000 ML IV (04:19)
[2018-12-29] MEDS: INSULIN ASPART [NOVOLOG] 3 ML PEN SC ×3 (06:00→11:37)
[2018-12-29 06:17] LABS: ADD MAN DIFF? NO
[2018-12-29 06:23] LABS: BASOPHILS % 0.2 % (0.0-2.0); HEMATOCRIT 25.7 % (37.0-47.0); HEMOGLOBIN 7.5 g/dl (12.0-16.0); LYMPHOCYTES # 0.9 10^3/ul (0.8-2.9); LYMPHOCYTES % 5.4 % (15.0-51.0); MEAN CORPUSCULAR HEMOGLOBIN 27.3 pg (29.0-33.0); MEAN CORPUSCULAR HGB CONC 29.2 g/dl (32.0-37.0); MEAN CORPUSCULAR VOLUME 93.5 fl (82.0-101.0); MEAN PLATELET VOLUME 9.5 fl (7.4-10.4); MONOCYTE # 1.2 10^3/ul (0.3-0.9); MONOCYTES % 7.6 % (0.0-11.0); NEUTROPHIL # 13.9 10^3/ul (1.6-7.5); NEUTROPHILS % 85.7 % (39.0-77.0); PLATELET COUNT 492 10^3/UL (140-415); RED BLOOD COUNT 2.75 10^6/ul (4.20-5.40); RED CELL DISTRIBUTION WIDTH 17.9 % (11.5-14.5)
[2018-12-29 06:23] LABS: WHITE BLOOD COUNT 16.2 10^3/ul (4.8-10.8)
[2018-12-29 07:23] LABS: ANION GAP 8 (5-13); BLOOD UREA NITROGEN 33 mg/dl (7-20); CALCIUM 9.2 mg/dl (8.4-10.2); CARBON DIOXIDE 22 mmol/L (21-31); CHLORIDE 113 mmol/L (97-110); CREATININE 0.58 mg/dl (0.44-1.00); Estimated GFR > 60 mL/min (>60); GLUCOSE 171 mg/dl (70-220); MAGNESIUM 2.6 mg/dl (1.7-2.5); PHOSPHORUS 3.6 mg/dl (2.5-4.9); POTASSIUM 4.4 mmol/L (3.5-5.1); SODIUM 143 mmol/L (135-144)
[2018-12-29 07:56] LABS: PREALBUMIN 3.5 mg/dl (17.6-36.0)
[2018-12-29] MEDS: HYDROCORTISONE 1% 28 GM CR TOP (09:00)
[2018-12-29] MEDS: COLLAGENASE 5 GM (UD JAR) TOP (09:03)
[2018-12-29] MEDS: FAMOTIDINE 20 MG INJ IV (09:03)
[2018-12-29] MEDS: ENOXAPARIN 60 MG/0.6 ML SYG SC (09:15)
[2018-12-29] MEDS: LEVOFLOXACIN 500MG/D5W (PMX) 100 ML IVPB (11:27)
[2018-12-29] MEDS: LEVALBUTEROL (NEB) 1.25 MG/0.5 ML AMP HHN (16:46)
[2018-12-29] MEDS ORDERED: LORAZEPAM 2 MG INJ IV ×2 (17:00→17:30)
[2018-12-29] MEDS ORDERED: ONDANSETRON 4 MG INJ IV (17:00)
[2018-12-29] MEDS: morphine (DRIP) 100 MG/100 ML 100 ML IV ×2 (19:00→20:40)
== END 2018-12-29 21:35 | disposition expired | DRG 374 ==
LOC: E/R 22:25 → TEL 12-16 01:17
PROC: 0CJY8ZZ Inspection of Mouth and Throat, Via Natural or Artificial Opening Endoscopic (ICD-10-PCS; principal; 2018-12-18)
PROC: 0W9G3ZZ Drainage of Peritoneal Cavity, Percutaneous Approach (ICD-10-PCS; 2018-12-21)
PROC: 3E0436Z Introduction of Nutritional Substance into Central Vein, Percutaneous Approach (ICD-10-PCS; 2018-12-22)
DX: C18.9 Malignant neoplasm of colon, unspecified (principal); E43 Unspecified severe protein-calorie malnutrition; I26.99 Other pulmonary embolism without acute cor pulmonale; G92 Toxic encephalopathy; C78.00 Secondary malignant neoplasm of unspecified lung; C78.6 Secondary malignant neoplasm of retroperitoneum and peritoneum; C79.89 Secondary malignant neoplasm of other specified sites; E87.4 Mixed disorder of acid-base balance; K56.7 Ileus, unspecified; N39.0 Urinary tract infection, site not specified; R18.0 Malignant ascites; R64 Cachexia; Z68.1 Body mass index [BMI] 19.9 or less, adult; B96.20 Unspecified Escherichia coli [E. coli] as the cause of diseases classified elsewhere; D63.0 Anemia in neoplastic disease; E87.6 Hypokalemia; G89.3 Neoplasm related pain (acute) (chronic); L89.150 Pressure ulcer of sacral region, unstageable; R13.19 Other dysphagia; R22.1 Localized swelling, mass and lump, neck; R53.1 Weakness; R53.81 Other malaise; R62.7 Adult failure to thrive; Z51.5 Encounter for palliative care; Z66 Do not resuscitate; Z74.01 Bed confinement status
CPT/HCPCS: 36415; 36600; 70450; 70491; 71045; 74177; 80048; 80053; 80061; 81001; 82040; 82378; 82728; 82803; 82962; 83036; 83540; 83690; 83735; 84100; 84134; 84443; 84478; 84484; 84703; 85025; 85610; 87040-91; 87086; 92610; 93005; 94640; 94664; 96374; 96375; 99285-25